=== PATIENT | male | born 1955 | race Caucasian/White ===

== ENCOUNTER 2020-07-21 10:47 | Emergency (ER) | payer OTHER, SELFPAY ==
--- NOTE | ~2020-07-21 | CT_ITS ---
EXAMINATION: CT HEAD WITHOUT CONTRAST CLINICAL INFORMATION: Left-sided headaches COMPARISON: None TECHNIQUE: Contiguous axial imaging was performed from the skull base to vertex without intravenous administration of contrast. This CT examination was performed using dose optimization techniques as appropriate, variously including the following: *Automated exposure control *Adjustment of mA and/or kV according to patient size (this includes techniques or standardized protocols for targeted exams where dose is matched to indication/reason for exam; i.e. extremities or head) *Use of iterative reconstruction technique DLP: 701 mGy-cm FINDINGS: There is no evidence of acute intracranial hemorrhage or territorial infarction. No abnormal mass effect or midline shift is seen. [place]er to white matter differentiation is well preserved. No extra-axial fluid collections are identified. The ventricles are normal in size. There is no abnormal attenuation within the brain parenchyma. No acute calvarial fracture. Mild ethmoid sinus mucosal thickening. The mastoid air cells and remainder of the visualized portions of the paranasal sinuses are well aerated. CT/CT head/brain wo con IMPRESSION: No CT evidence of acute intracranial pathology. Mild ethmoid sinus mucosal thickening.
[2020-07-21 10:52] VITALS: BP 153/85; PULSE 66; RESP 18; TEMP 36.6; O2SAT 100; BMI 29.5
--- NOTE | 2020-07-21 11:02 | ED.HA ---
HPI - Headache General Chief Complaint: Headache Stated Complaint: headache x 2 months Time Seen by Provider: 07/21/20 11:02 Source: patient and medical technologist generalist Mode of arrival: ambulatory Limitations: no limitations History of Present Illness HPI Narrative: 64 yo male with HTN, HPL reports 4 weeks of constant stabbing parietal head pain no trauma it is there all the time responds to some tylenol MD elicited complaint: headache Onset (ago): week(s) (4) Onset description: gradually Location: left, down into neck and other (parietal ) Severity: moderate Quality & Timing: sharp Exacerbating factors: none Relieving factors: nothing Context: occurred at rest Associated symptoms: none Treatments prior to arrival: acetaminophen Related Data Previous Rx's Medication Instructions Recorded amoxicillin-pot clavulanate 1 tab PO BID #14 tab 07/21/20 [Augmentin] [id number]-[id number]-pkhp 1 tab PO Q6H PRN #20 tab 07/21/20 prednisone 40 mg PO DAILY 5 Days #10 tab 07/21/20 Allergies Allergy/AdvReac Type Severity Reaction Status Date / Time No Known Allergies Allergy Verified 07/21/20 11:10 Review of Systems Review of Systems: Constitutional : No Fever, No Chills, No Fatigue ENT/Mouth : No sore throat, No Rhinorrhea Eyes: No Eye Pain, No Swelling, No Redness Cardiovascular : No Chest Pain, No SOB, No Dyspnea on Exertion Respiratory : No Cough, No Sputum Gastrointestinal : No Nausea, No Vomiting, No Diarrhea, No abdominal Pain Genitourinary : No Dysuria, No Urinary Frequency, No Hematuria, Musculoskeletal : No joint pain, No Myalgias, No Joint Swelling Skin : No Skin Lesions, No rash Neuro : No Weakness, No Numbness, No Dizziness, positive Headache Psych : No Anxiety/Panic, No Depression Heme/Lymph: No Bruising, No Bleeding,No Lymphadenopathy Endocrine : No Polyuria, No Polydipsia All other systems reviewed and are negative FOR[facility]LY [facility] Past Medical History Medical History HTN (hypertension) Hyperlipidemia No known health problems Social History Social History Alcohol intake: never Smoking Status: Never smoker Use of substances other than those prescribed or required for medical reasons: No Advance Directives: No Advance Directives Information Provided: No Physical Exam Vital Signs: Vital Signs: Last Vital Signs Temp 98 F 07/21/20 10:52 Pulse 66 07/21/20 10:52 Resp 18 07/21/20 10:52 BP 153/85 H 07/21/20 10:52 Pulse Ox 100 07/21/20 10:52 Body Mass Index 29.5 Appearance: Alert. Oriented X3. No acute distress. Eyes: Pupils equal, round and reactive to light. ENT: Pharynx normal. no ttp along L temporal artery no mass in neck felt, no pain with ROM of neck noted Neck: Normal inspection. Neck supple. CVS: Normal heart rate and rhythm. Pulses normal. Respiratory: No respiratory distress. Breath sounds normal. Abdomen: Soft and nontender. Skin: Skin warm and dry. Normal skin color. Normal skin turgor. Extremities: No lower extremity edema. No calf ttp Neuro: Oriented X 3. No motor deficit. No sensory deficit. Course Course Course Narrative: no acute findings will start on abx for ethmoid disease, steroids, refer to PCP MDM - Headache MDM Narrative Medical decision making narrative: 64 yo male with shart pain parietal head pain no AC therapy, no associated symptoms, no temporal artery pain no jaw claudication - states it is only pain on the dome of his head, no neck pain with ROM no swallowing changes, does respond to tylenol, will obtain head CT for mass Discharge Plan Discharge Clinical Impression: Headache Qualifiers: Headache type: unspecified Headache chronicity pattern: acute headache Intractability: intractable Qualified Code(s): R51.9 - Headache, unspecified Patient Disposition: Home, Self-Care Instructions: Acute Headache (ED), Sinusitis (ED) Additional Instructions: return to ED for any worsening symptoms or concerns IF NOT BETTER IN 3 DAYS CALL YOUR DOCTOR Prescriptions: New prednisone 20 mg tablet 40 mg PO DAILY 5 Days Qty: 10 RF: 0 [id number]-sbkcpxpvfueso-zacz 50-325-40 mg tablet 1 tab PO Q6H PRN (Reason: pain) Qty: 20 RF: 0 amoxicillin-pot clavulanate [Augmentin] 875-125 mg tablet 1 tab PO BID Qty: 14 RF: 0 Referrals: Odilon Elliott MD [Primary Care Provider] - 3 days (if not better) Stand Alone Forms: Work/School Release Print Language: B[place]ian
[2020-07-21 13:41] VITALS: BP 154/89; PULSE 56; RESP 18; O2SAT 99
== END 2020-07-21 13:51 | disposition home or self-care (01) ==
PROVIDERS: Emergency Provider Emergency Medicine; PCP Internal Medicine
DX: R51.9 Headache, unspecified (principal); I10 Essential (primary) hypertension; E78.5 Hyperlipidemia, unspecified
CPT/HCPCS: 70450; 99284